=== PATIENT | female | born 1965 | race Two or more races ===

== ENCOUNTER 2024-04-14 14:09 | Emergency (ER) | payer MEDICAID ==
[~2024-04-14] VITALS: Ht 172.7 cm; Wt 130.0 kg
[2024-04-14 14:14] VITALS: O2SAT 98
[2024-04-14 14:45] LABS: BASOPHILS % 0.5 % (0.0-2.0); HEMATOCRIT. 40.2 % (36.0-48.0); HEMOGLOBIN. 12.9 g/dL (12.0-16.0); LYMPHOCYTES % 31.8 % (20.0-50.0); MEAN CORPUSCULAR HEMOGLOBIN 27.1 pg (28.0-32.0); MEAN CORPUSCULAR HGB CONC 32.2 g/dL (31.0-37.0); MEAN CORPUSCULAR VOLUME 84.3 fL (81.0-99.0); MEAN PLATELET VOLUME 8.1 fl (7.4-10.4); MONOCYTES % 6.3 % (2.0-8.0); NEUTROPHILS % 57.4 % (40.0-76.0); PLATELET 217 x1000/uL (130-400); RED BLOOD CELL COUNT 4.77 mill/uL (4.2-5.4); RED CELL DISTRIBUTION WIDTH 16.2 % (11.6-14.6); WHITE BLOOD COUNT 7.4 x1000/uL (4.5-11.0)
[2024-04-14 14:51] LABS: CHLORIDE 104 mEq/L (98-107); POTASSIUM 3.6 mEq/L (3.5-5.1); SODIUM 139 mEq/L (136-145)
[2024-04-14 14:52] LABS: CALCIUM 9.1 mg/dL (8.7-10.4); CARBON DIOXIDE 21 mEq/L (21-32)
[2024-04-14 14:57] LABS: CREATININE 0.8 mg/dL (0.6-1.0); ETHANOL BLOOD 239 mg/dL (<10); GLUCOSE 264 mg/dL (70-105); UREA NITROGEN BLOOD 10 mg/dL (9-23)
[2024-04-14 17:59] VITALS: BP 103/67; PULSE 82; RESP 14; TEMP 37.1; O2SAT 98
== END 2024-04-14 18:02 | disposition home or self-care (01) ==
LOC: ER 14:09
DX: F10.129 Alcohol abuse with intoxication, unspecified (principal); R07.9 Chest pain, unspecified; R51.9 Headache, unspecified; Y90.7 Blood alcohol level of 200-239 mg/100 ml
CPT/HCPCS: 80048; 80320; 85025; 36415; 73120; 70450; 72125; 93005; 99285; Z7610; G0480